=== PATIENT | male | born 1965 | race Caucasian/White ===

== ENCOUNTER 2017-12-03 12:08 | Day surgery (SDC) | payer BC ==
[2017-12-03] MEDS ORDERED: PROPOFOL 60 ML (13:34)
== END 2017-12-03 15:12 | disposition home or self-care (01) ==
LOC: GIL 12:08
DX: Z12.11 Encounter for screening for malignant neoplasm of colon (principal); D12.7 Benign neoplasm of rectosigmoid junction; K21.0 Gastro-esophageal reflux disease with esophagitis; K44.9 Diaphragmatic hernia without obstruction or gangrene
CPT/HCPCS: 43239; 88305; 88312